=== PATIENT | male | born 1955 | race Caucasian/White ===

== ENCOUNTER 2016-10-05 07:58 | Day surgery (SDC) | payer BC ==
[~2016-10-05 07:58] MED LIST: PROPOFOL 500 MG/50 ML EMU IV ONE
[2016-10-05 09:25] VITALS: O2SAT 99
[2016-10-05 10:14] VITALS: BP 139/76; PULSE 50; RESP 20; TEMP 964
== END 2016-10-05 10:30 | disposition home or self-care (01) ==
LOC: SURG 07:58
PROVIDERS: ATTEND Surgery
DX: Z12.11 Encounter for screening for malignant neoplasm of colon (principal); Z86.010 Personal history of colon polyps
CPT/HCPCS: 45378; J2704